=== PATIENT | female | born 1965 | race Caucasian/White ===

== ENCOUNTER 2016-07-07 11:29 | Emergency (ER) | payer OTHER ==
[2016-07-07 11:38] VITALS: BP 129/88; PULSE 68; TEMP 97.9; BMI 24.2
--- NOTE | 2016-07-07 12:09 | PDOC ---
History of Present Illness - General Chief Complaint: Allergic Reaction Stated Complaint: ALLERGIC REACTION Time Seen by Provider: 07/07/16 12:04 - History of Present Illness Initial Comments: 07/07/16 12:10 Chief complaint: Throat irritation and itching History of present illness: After receiving intravenous contrast for an MRI, and the study being completed, the patient developed mild irritation in the throat and itching of her right arm at the IV site. This lasted for 5 or 10 minutes, and is resolving. The patient has no symptoms at present. She has no history of contrast ALLERGY in the past, despite having had contrast material on a number of occasions Review of systems: No chest pain, shortness of breath, abdominal pain, nausea, vomiting, diarrhea, generalized rash, wheezing. Past medical history: Hypothyroid, vague neurological symptoms being evaluated now and the reason for MRI today. These are unchanged Social/family history reviewed and noncontributory Physical exam: Alert and oriented well-developed well-nourished no acute distress cheerful and cooperative. Asymptomatic at present Afebrile, vital signs normal PERRLA, fundi benign, ENT clear. Specifically, there is no swelling or edema of the throat, remainder of the oropharynx, lips or face Neck supple without bruit mass or nodes Lungs clear with full breath sounds throughout bilaterally. No wheezing CV S1 and S2 normal without murmur rub or gallop pulses full and symmetric no JVD or edema no bruits Abdomen soft nontender without mass or organomegaly Skin clear, no rash, adequate turgor and what mucous membranes. Specifically. There is no rash at the IV site and no current itching Neurological intact gait stable and unimpaired Impression: Possible transient reaction to IV contrast material, symptoms now resolved without therapy Plan: Patient states that she has bad reaction to Benadryl and would prefer to avoid taking it. However, she uses Zyrtec, which she has at home. Advised to take Zyrtec today, return to the hospital immediately if there are further symptoms. Otherwise follow-up with her primary physician. Fully ambulatory and asymptomatic upon discharge with family member to follow-up as needed. Past History - Past Medical History Allergies/Adverse Reactions: Allergies Allergy/AdvReac Type Severity Reaction Status Date / Time IV CONTRAST FROM MRA Allergy Itching Uncoded 07/07/16 11:31 Home Medications: Ambulatory Orders No Known Home Medication 07/07/16 Anemia: Yes GI Disorders: Yes (hiatal hernia) HTN: (hypotension) - Surgical History Orthopedic Surgery: No - Psycho/Social/Smoking Cessation Hx Anxiety: No Suicidal Ideation: No Smoking History: Never smoked Have you smoked in the past 12 months: No Hx Alcohol Use: No Drug/Substance Use Hx: No Substance Use Type: None Hx Substance Use Treatment: No *Physical Exam - Vital Signs Last Vital Signs Temp Pulse Resp BP Pulse Ox 97.9 F 68 18 129/88 100 07/07/16 11:30 07/07/16 11:30 07/07/16 11:30 07/07/16 11:30 07/07/16 11:30 *DC/Admit/Observation/Transfer Diagnosis at time of Disposition: Allergic reaction Qualifiers: Encounter type: initial encounter Qualified Code(s): T78.40XA - Allergy, unspecified, initial encounter - Discharge Dispostion Condition at time of disposition: Stable Admit: No - Patient Instructions Printed Discharge Instructions: DI for Adverse Drug Reaction -- Allergic Additional Instructions: Return to the ER immediately if symptoms recur Take Zyrtec upon returning home, and another dose this evening.
== END 2016-07-07 12:15 | disposition home or self-care (01) ==
LOC: FER 11:29
DX: T78.40XA Allergy, unspecified, initial encounter (principal); E03.9 Hypothyroidism, unspecified; D64.9 Anemia, unspecified
CPT/HCPCS: 99283-25